=== PATIENT | female | born 1985 | race Caucasian/White ===

== ENCOUNTER 2017-09-10 14:18 | Inpatient (IN) | payer OTHER ==
[2017-09-10 16:58] VITALS: BMI 21.9
--- NOTE | 2017-09-10 19:24 | HP ---
COWS - Scale Resting Pulse: 1= [place] 81-100 Sweatin= Chills/Flushing Restless Observation: 3= Extraneous Movement Pupil Size: 0= Normal to Room Light Bone or Joint Aches: 2= Severe Diffuse Aches Runny Nose/ Eye Tearin= Runny Nose/Eyes GI Upset > 30mins: 2= Nausea/Diarrhea Tremor Observation: 2= Slight Tremor Visible Yawning Observation: 0= None Anxiety or Irritability: 2=Irritable/Anxious Goose Flesh Skin: 0=Smooth Skin COWS Score: 15 Admission [facility] Chief Complaint: withdrawal sx Allergies/Adverse Reactions: Allergies Allergy/AdvReac Type Severity Reaction Status Date / Time No Known Allergies Allergy Verified 09/10/17 17:41 History of Present Illness: 32 years old female with long history of opium nicotine dependence has anxiety and depression is admitted to detox Exam Limitations: No Limitations - Ebola screening Have you traveled outside of the country in the last 21 days: No (N) Have you had contact with anyone from an Ebola affected area: No Have you been sick,other than usual withdrawal symptoms: No Do you have a fever: No - Review of Systems Constitutional: Changes in sleep, Weight Stable EENT: reports: Blurred Vision (eye glasses) Respiratory: reports: Cough, SOB with Exertion Cardiac: reports: No Symptoms Reported GI: reports: Nausea, Poor Fluid Intake, Abdominal cramping : reports: No Symptoms Reported Musculoskeletal: reports: Back Pain, Joint Pain, Muscle Pain, Neck Pain Integumentary: reports: No Symptoms Reported Neuro: reports: Tremors Endocrine: reports: No Symptoms Reported Hematology: reports: No Symptoms Reported Psychiatric: reports: Judgement Intact, Orientated x3, Anxious, Depressed Other Systems: Reviewed and Negative Patient History - Patient Medical History Hx Anemia: No Hx Asthma: No Hx Chronic Obstructive Pulmonary Disease (COPD): No Hx Cancer: No Hx Cardiac Disorders: No Hx Congestive Heart Failure: No Hx Hypertension: No Hx Hypercholesterolemia: No Hx Pacemaker: No HX Cerebrovascular Accident: No Hx Seizures: No Hx Dementia: No Hx Diabetes: No Hx Gastrointestinal Disorders: No Hx Liver Disease: No Hx Genitourinary Disorders: No Hx Sexually Transmitted Disorders: No Hx Renal Disease (ESRD): No Hx Thyroid Disease: No Hx Human Immunodeficiency Virus (HIV): No Hx Hepatitis C: No Hx Depression: Yes Hx Suicide Attempt: No Hx Bipolar Disorder: No Hx Schizophrenia: No - Patient Surgical History Past Surgical History: Yes Hx Neurologic Surgery: No Hx Cataract Extraction: No Hx Cardiac Surgery: No Hx Lung Surgery: No Hx Breast Surgery: No Hx Breast Biopsy: No Hx Abdominal Surgery: No Hx Appendectomy: No Hx Cholecystectomy: No Hx Genitourinary Surgery: No Hx Section: No Hx Orthopedic Surgery: Yes (knee) Hx Hysterectomy: No Anesthesia Reaction: No - PPD History Previous Implant?: Yes Documented Results: Negative w/o proof Implanted On Prior [facility] Admission?: No PPD to be Administered?: Yes - Reproductive History Patient is a Female of Child Bearing Age (11 -55 yrs old): Yes Last Menstrual Period: 09/03/17 Patient : No - Smoking Cessation Smoking history: Current every day smoker Have you smoked in the past 12 months: Yes Aproximately how many cigarettes per day: 15 Cigars Per Day: 0 Hx Chewing Tobacco Use: No Initiated information on smoking cessation: Yes 'Breaking Loose' booklet given: 09/10/17 - Substance & Tx. History Hx Alcohol Use: No Hx Substance Use: Yes Substance Use Type: Cocaine, Marijuana, Opiates Hx Substance Use Treatment: No - Substances Abused Oxycodone Route: Oral Frequency: Daily Amount used: 300 mg Age of first use: 28 Date of Last Use: 09/10/17 Family Disease History - Family Disease History Family History: Unremarkable Admission Physical Exam BHS - Vital Signs Vital Signs: Vital Signs - 24 hr 09/10/17 16:56 Temperature 97.5 F L Pulse Rate 82 Respiratory 18 Rate Blood Pressure 116/70 - Physical General Appearance: Yes: Appropriately Dressed, Mild Distress, Thin, Tremorous, Irritable, Sweating, Anxious HEENTM: Yes: Hearing grossly Normal, Normal ENT Inspection, Normocephalic, Normal Voice Respiratory: Yes: Chest Non-Tender, Lungs Clear, Normal Breath Sounds, No Respiratory Distress, No Accessory Muscle Use Neck: Yes: Supple, Trachea in good position Breast: Yes: Breasts Symetrical Cardiology: Yes: Regular Rhythm, Regular Rate, S1, S2 Abdominal: Yes: Non Tender, Soft, Increased Bowel Sounds Genitourinary: Yes: Within Normal Limits Back: Yes: Normal Inspection Musculoskeletal: Yes: full range of Motion, Gait Steady, Back pain, Muscle Pain Extremities: Yes: Normal Inspection, Normal Range of Motion, Non-Tender, Tremors Neurological: Yes: Fully Oriented, Alert, Motor Strength 5/5, Normal Response, Depressed Affect Integumentary: Yes: Warm Lymphatic: Yes: Within Normal Limits - Diagnostic (1) Opioid dependence with withdrawal Current Visit: Yes Status: Acute (2) Nicotine dependence Current Visit: Yes Status: Acute Qualifiers: Nicotine product type: cigarettes Substance use status: in withdrawal Qualified Code(s): F17.213 - Nicotine dependence, cigarettes, with withdrawal (3) Anxiety and depression Current Visit: Yes Status: Suspected Cleared for Admission [facility] - Detox or Rehab [facility] Level of Care: Medically Managed Detox Regimen/Protocol: Methadone [facility] Breath Alcohol Content Breath Alcohol Content: 0 Urine Pregancy Test - Result Urine Test Results: Negative- NO Line Present Urine Drug Screen - Results Drug Screen Negative: No Urine Drug Screen Results: THC-Marijuana, GUEVARA-Cocaine, OXY-Oxycodone
[2017-09-10] MEDS ORDERED: IBUPROFEN 400 MG TABLET (FP) PO PRN (19:28)
[2017-09-10] MEDS ORDERED: NICOTINE POLACRILEX 4 MG GUM BC PRN (19:28)
[2017-09-10] MEDS ORDERED: ACETAMINOPHEN 325 MG TABLET (FP) PO PRN (19:28)
[2017-09-10] MEDS ORDERED: MENTHOL/PHENOL 1 EACH UD MM PRN (19:28)
[2017-09-10] MEDS ORDERED: P-EPHED 60MG/TRIPROLIDI 2.5MG TABLET PO PRN (19:28)
[2017-09-10] MEDS ORDERED: MAG HYDROX/AL HYDROX/SIMETH 30 ML UNIT-DOSE CUP PO PRN (19:28)
[2017-09-10] MEDS ORDERED: MAGNESIUM HYDROX 2400MG/30ML ORAL SUSPENSION 30 ML CUP PO PRN (19:28)
[2017-09-10] MEDS ORDERED: LOPERAMIDE HCL 2 MG CAPSULE PO PRN (19:28)
[2017-09-10] MEDS ORDERED: METHADONE HCL 10 MG TABLET (FOR DETOX USE ONLY) PO ONE ×2 (19:28→23:00)
[2017-09-10] MEDS ORDERED: guaiFENesin/D-METHORPHAN HB 10 ML UNIT-DOSE CUPS PO PRN (19:28)
[2017-09-10] MEDS ORDERED: MAGNESIUM CITRATE 300 ML BOTTLE PO PRN (19:28)
[2017-09-10] MEDS: diazePAM 5 MG TABLET PO PRN (20:10)
[2017-09-10 20:28] LABS: URINE APPEARANCE SLCLOUDY; URINE BILIRUBIN NEGATIVE (NEGATIVE); URINE BLOOD NEGATIVE (NEGATIVE); URINE COLOR YELLOW; URINE GLUCOSE (UA) NEGATIVE (NEGATIVE); URINE KETONE NEGATIVE (NEGATIVE); URINE NITRITE NEGATIVE (NEGATIVE); URINE PROTEIN NEGATIVE (NEGATIVE); URINE UROBILINOGEN NEGATIVE mg/dL (0.2-1.0)
[2017-09-10] MEDS: BACLOFEN 10 MG TABLET (FP) PO PRN (22:21)
[2017-09-10] MEDS: THIAMINE HCL 100 MG TABLET (FP) PO SCH (22:21)
[2017-09-10 22:54] LABS: URINE LEUK ESTERASE Negative (NEGATIVE)
[2017-09-11] MEDS: diazePAM 5 MG TABLET PO PRN ×3 (06:04→22:22)
[2017-09-11] MEDS ORDERED: METHADONE HCL 10 MG TABLET (FOR DETOX USE ONLY) PO ONE (10:00)
[2017-09-11 10:14] LABS: MCH 31.9 pg (25.7-33.7); MEAN CELL VOLUME 96.7 fl (80-96); MEAN PLT VOLUME 8.1 fl (7.5-11.1); PLATELET COUNT 331 K/MM3 (134-434); RDW 12.5 % (11.6-15.6); WHITE BLOOD COUNT 5.6 K/mm3 (4.0-10.0)
[2017-09-11 10:15] LABS: ALBUMIN 3.6 g/dl (3.4-5.0); ALK PHOS 38 U/L (45-117); ANION GAP 8 (8-16); BILIRUBIN,TOTAL 0.2 mg/dL (0.2-1.0); CALCIUM 8.5 mg/dL (8.5-10.1); CO2 27 mmol/L (21-32); CREATININE 0.8 mg/dL (0.55-1.02); GLUCOSE,RANDOM 92 mg/dL (74-106); SGOT/AST 6 U/L (15-37); SGPT/ALT 15 U/L (12-78); TOT PROT 6.4 g/dl (6.4-8.2)
[2017-09-11] MEDS: PRENATAL VITAMINS W/ FOLIC ACID TABLET (FP) PO SCH (10:33)
[2017-09-11] MEDS: NICOTINE 21 MG/24 HOURS TOPICAL PATCH TD SCH (10:33)
--- NOTE | 2017-09-11 12:12 | PN ---
S COWS - Scale Resting Pulse: 0= [place] 80 or Below Sweatin=Flushed/Facial Moisture Restless Observation: 1= Difficult to Sit Still Pupil Size: 0= Normal to Room Light Bone or Joint Aches: 2= Severe Diffuse Aches Runny Nose/ Eye Tearin= Nasal Congestion GI Upset > 30mins: 1= Stomach Cramp Tremor Observation of Outstretched Hands: 2= Slight Tremor Visible Yawning Observation: 2= >3x During Session Anxiety or Irritability: 2=Irritable/Anxious Goose Flesh Skin: 3=Piloerection COWS Score: 16 [facility] Progress Note (SOAP) Subjective: sweats irritable agitation interrupted sleep Objective: 09/11/17 12:11 Vital Signs Temperature 97.7 F 09/11/17 09:34 Pulse Rate 78 09/11/17 09:34 Respiratory Rate 18 09/11/17 09:34 Blood Pressure 102/71 09/11/17 09:34 O2 Sat by Pulse Oximetry (%) Laboratory Tests 09/10/17 09/11/17 09/11/17 19:40 07:00 07:00 WBC 5.6 RBC 4.04 Hgb 12.9 Hct 39.1 MCV 96.7 H MCH 31.9 MCHC 33.0 RDW 12.5 Plt Count 331 MPV 8.1 Sodium 142 Potassium 4.2 Chloride 107 Carbon Dioxide 27 Anion Gap 8 BUN 14 Creatinine 0.8 Creat Clearance w eGFR > 60 Random Glucose 92 Calcium 8.5 Total Bilirubin 0.2 AST 6 L ALT 15 Alkaline Phosphatase 38 L Total Protein 6.4 Albumin 3.6 Urine Color Yellow Urine Appearance Slcloudy Urine pH 8.0 Ur Specific [place] 1.019 Urine Protein Negative Urine Glucose (UA) Negative Urine Ketones Negative Urine Blood Negative Urine Nitrite Negative Urine Bilirubin Negative Urine Urobilinogen Negative Ur Leukocyte Esterase Negative RPR Titer 09/11/17 07:00 WBC RBC Hgb Hct MCV MCH MCHC RDW Plt Count MPV Sodium Potassium Chloride Carbon Dioxide Anion Gap BUN Creatinine Creat Clearance w eGFR Random Glucose Calcium Total Bilirubin AST ALT Alkaline Phosphatase Total Protein Albumin Urine Color Urine Appearance Urine pH Ur Specific [place] Urine Protein Urine Glucose (UA) Urine Ketones Urine Blood Urine Nitrite Urine Bilirubin Urine Urobilinogen Ur Leukocyte Esterase RPR Titer Nonreactive aaox3 ambulating no acute distress Assessment: 09/11/17 12:12 withdrawal sx Plan: continue detox increase fluids
--- NOTE | 2017-09-11 12:40 | CONSULT ---
[facility] Psychiatric Consult - Data Date of interview: 09/11/17 Admission source: [facility] Identifying data: Pt. is a 32 year old, single, employed, with no children. This is patient's first admission at [facility]. Pt. admitted to for detox from oxycodone dependence. Substance Abuse History: Oxycodone- Reports using oxycodone daily for 4 years. Amount used: 200mg daily on average. Last used 09/10/2017. Cocaine- Used cocaine approximately three times within the past 5 years. Last used last week. Marijuana- Usage: On and off since high school. Last used last week. Medical History: Denies. Psychiatric History: Denies. Pt. denies suicidal and homicidal ideation. Pt. denies a history of suicide attempts. Physical/Sexual Abuse/Trauma History: Denies. Mental Status Exam - Mental Status Exam Alert and Oriented to: Time, Place, Person Cognitive Function: Fair Patient Appearance: Well Groomed Mood: Euthymic Affect: Euthymic Patient Behavior: Appropriate, Cooperative Speech Pattern: Clear Voice Loudness: Normal Thought Process: Intact Thought Disorder: Present Hallucinations: Denies Suicidal Ideation: Denies Homicidal Ideation: Denies Insight/Judgement: Fair Sleep: Well Appetite: Fair Muscle strength/Tone: Normal Gait/Station: Normal Psychiatric Findings - Problem List ([place] 1, 2,3) (1) Substance induced mood disorder Current Visit: Yes Status: Acute (2) Nicotine dependence Current Visit: Yes Status: Acute Qualifiers: Nicotine product type: cigarettes Substance use status: in withdrawal Qualified Code(s): F17.213 - Nicotine dependence, cigarettes, with withdrawal (3) Opioid dependence with withdrawal Current Visit: Yes Status: Acute - Initial Treatment Plan Initial Treatment Plan: Psycoeducation provided. Chart reviewed. No psychotrophic medications needed at this time. Will continue to monitor patient.
[2017-09-11] MEDS: THIAMINE HCL 100 MG TABLET (FP) PO SCH (22:22)
[2017-09-11] MEDS: BACLOFEN 10 MG TABLET (FP) PO PRN (22:22)
[2017-09-12] MEDS: diazePAM 5 MG TABLET PO PRN ×4 (05:37→22:29)
[2017-09-12] MEDS: BACLOFEN 10 MG TABLET (FP) PO PRN ×2 (05:37→22:28)
--- NOTE | 2017-09-12 08:00 | EKG ---
Test Reason : Blood Pressure : / mmHG Vent. Rate : 064 BPM Atrial Rate : 064 BPM P-R Int : 128 ms QRS Dur : 076 ms QT Int : 430 ms P-R-T Axes : 047 084 065 degrees QTc Int : 443 ms NORMAL SINUS RHYTHM NORMAL ECG NO PREVIOUS ECGS AVAILABLE Confirmed by MD Sandoval Daniel ([id number]) on 09/11/2017 3:03:48 PM Also confirmed by MD Sandoval Daniel ([id number]), continuity editor JONNY SELF ([id number]) on 09/12/2017 7:59:45 AM Referred By: Confirmed By:Jonny Sandoval MD
[2017-09-12] MEDS ORDERED: METHADONE HCL 5 MG TABLET (FOR DETOX USE ONLY) PO ONE (10:00)
[2017-09-12] MEDS: PRENATAL VITAMINS W/ FOLIC ACID TABLET (FP) PO SCH (10:34)
[2017-09-12] MEDS: NICOTINE 21 MG/24 HOURS TOPICAL PATCH TD SCH (10:37)
--- NOTE | 2017-09-12 11:11 | PN ---
S COWS - Scale Resting Pulse: 0= [place] 80 or Below Sweatin=Flushed/Facial Moisture Restless Observation: 1= Difficult to Sit Still Pupil Size: 0= Normal to Room Light Bone or Joint Aches: 2= Severe Diffuse Aches Runny Nose/ Eye Tearin= Nasal Congestion GI Upset > 30mins: 0= None Tremor Observation of Outstretched Hands: 2= Slight Tremor Visible Yawning Observation: 1= 1-2x During Session Anxiety or Irritability: 2=Irritable/Anxious Goose Flesh Skin: 0=Smooth Skin COWS Score: 11 [facility] Progress Note (SOAP) Subjective: agitation sweats interrupted sleep irritable Objective: 09/12/17 11:10 Vital Signs Temperature 97.7 F 09/12/17 10:17 Pulse Rate 76 09/12/17 10:17 Respiratory Rate 18 09/12/17 10:17 Blood Pressure 109/60 09/12/17 10:17 O2 Sat by Pulse Oximetry (%) Laboratory Tests 09/10/17 09/11/17 09/11/17 19:40 07:00 07:00 WBC 5.6 RBC 4.04 Hgb 12.9 Hct 39.1 MCV 96.7 H MCH 31.9 MCHC 33.0 RDW 12.5 Plt Count 331 MPV 8.1 Sodium 142 Potassium 4.2 Chloride 107 Carbon Dioxide 27 Anion Gap 8 BUN 14 Creatinine 0.8 Creat Clearance w eGFR > 60 Random Glucose 92 Calcium 8.5 Total Bilirubin 0.2 AST 6 L ALT 15 Alkaline Phosphatase 38 L Total Protein 6.4 Albumin 3.6 Urine Color Yellow Urine Appearance Slcloudy Urine pH 8.0 Ur Specific [place] 1.019 Urine Protein Negative Urine Glucose (UA) Negative Urine Ketones Negative Urine Blood Negative Urine Nitrite Negative Urine Bilirubin Negative Urine Urobilinogen Negative Ur Leukocyte Esterase Negative RPR Titer 09/11/17 07:00 WBC RBC Hgb Hct MCV MCH MCHC RDW Plt Count MPV Sodium Potassium Chloride Carbon Dioxide Anion Gap BUN Creatinine Creat Clearance w eGFR Random Glucose Calcium Total Bilirubin AST ALT Alkaline Phosphatase Total Protein Albumin Urine Color Urine Appearance Urine pH Ur Specific [place] Urine Protein Urine Glucose (UA) Urine Ketones Urine Blood Urine Nitrite Urine Bilirubin Urine Urobilinogen Ur Leukocyte Esterase RPR Titer Nonreactive aaox3 ambulating no acute distress Assessment: 09/12/17 11:11 withdrawal sx Plan: continue detox increase fluids
[2017-09-12] MEDS: THIAMINE HCL 100 MG TABLET (FP) PO SCH (22:28)
[2017-09-13] MEDS: diazePAM 5 MG TABLET PO PRN (04:29)
[2017-09-13 06:39] VITALS: BP 100/55; PULSE 63; TEMP 97.7
[2017-09-13] MEDS: PRENATAL VITAMINS W/ FOLIC ACID TABLET (FP) PO SCH (09:02)
[2017-09-13] MEDS: NICOTINE 21 MG/24 HOURS TOPICAL PATCH TD SCH (09:04)
--- NOTE | 2017-09-13 09:35 | PN ---
S Progress Note Note: pt did not want to stay to complete detox she states she needs to go to work doesnt want to lose her job. pt signed out AMA.
--- NOTE | 2017-09-13 09:36 | DS ---
[facility] Detox Discharge Summary Admission Date: 09/10/17 - History Present History: Opioid Dependence - Physical Exam Results Vital Signs: Vital Signs Temperature 97.7 F 09/13/17 06:00 Pulse Rate 63 09/13/17 06:00 Respiratory Rate 18 09/13/17 06:00 Blood Pressure 100/55 09/13/17 06:00 O2 Sat by Pulse Oximetry (%) - Treatment Hospital Course: Responded well, Discharged Condition Good - Medication Discharge Medications: Ambulatory Orders NK [No Known Home Medication] 09/10/17 - Diagnosis (1) Nicotine dependence Current Visit: Yes Status: Chronic Qualifiers: Nicotine product type: cigarettes Substance use status: uncomplicated Qualified Code(s): F17.210 - Nicotine dependence, cigarettes, uncomplicated (2) Opioid dependence with withdrawal Current Visit: Yes Status: Chronic (3) Substance induced mood disorder Current Visit: Yes Status: Acute (4) Anxiety and depression Current Visit: Yes Status: Suspected - AMA Did Patient Leave Against Medical Advice: Yes
[2017-09-13] MEDS ORDERED: METHADONE HCL 5 MG TABLET (FOR DETOX USE ONLY) PO ONE (10:00)
[2017-09-14] MEDS ORDERED: METHADONE HCL 10 MG TABLET (FOR DETOX USE ONLY) PO ONE (10:00)
[2017-09-15] MEDS ORDERED: METHADONE HCL 5 MG TABLET (FOR DETOX USE ONLY) PO ONE (06:00)
== END 2017-09-13 09:20 | disposition left against medical advice (07) | DRG 894 ==
LOC: YASAS 14:18 → Y6N 18:14
PROVIDERS: ADMIT Internal Medicine; ATTEND Internal Medicine
PROC: HZ2ZZZZ Detoxification Services for Substance Abuse Treatment (ICD-10-PCS; principal; 2017-09-10)
DX: F11.23 Opioid dependence with withdrawal (principal); F17.210 Nicotine dependence, cigarettes, uncomplicated; F19.24 Other psychoactive substance dependence with psychoactive substance-induced mood disorder; F41.8 Other specified anxiety disorders
CPT/HCPCS: 36415; 80053; 81003; 85027; 86593; 93005; 93010; J0475

== ENCOUNTER 2017-10-11 21:55 | Inpatient (IN) | payer OTHER ==
--- NOTE | 2017-10-11 22:13 | HP ---
COWS - Scale Resting Pulse: 1= [place] 81-100 Sweatin= Chills/Flushing Restless Observation: 3= Extraneous Movement Pupil Size: 0= Normal to Room Light Bone or Joint Aches: 2= Severe Diffuse Aches Runny Nose/ Eye Tearin= Runny Nose/Eyes GI Upset > 30mins: 2= Nausea/Diarrhea Tremor Observation: 2= Slight Tremor Visible Yawning Observation: 0= None Anxiety or Irritability: 2=Irritable/Anxious Goose Flesh Skin: 0=Smooth Skin COWS Score: [address] [facility] Chief Complaint: withdrawal sx Allergies/Adverse Reactions: Allergies Allergy/AdvReac Type Severity Reaction Status Date / Time No Known Allergies Allergy Verified 09/10/17 17:41 History of Present Illness: 32 years old female with long history of heroin nicotine dependence has right knee surgery at age 11 is admitted to detox Exam Limitations: No Limitations - Ebola screening Have you traveled outside of the country in the last 21 days: No Have you had contact with anyone from an Ebola affected area: No Have you been sick,other than usual withdrawal symptoms: No Do you have a fever: No - Review of Systems Constitutional: Chills, Loss of Appetite, Unintentional Wgt. Loss, Unexplained wgt Loss EENT: reports: No Symptoms Reported Respiratory: reports: No Symptoms reported Cardiac: reports: No Symptoms Reported GI: reports: Diarrhea, Nausea, Poor Appetite, Poor Fluid Intake, Abdominal cramping : reports: No Symptoms Reported Musculoskeletal: reports: Back Pain, Joint Pain, Muscle Pain, Neck Pain Integumentary: reports: No Symptoms Reported Neuro: reports: Tremors Endocrine: reports: No Symptoms Reported Hematology: reports: No Symptoms Reported Psychiatric: reports: Judgement Intact, Mood/Affect Appropiate, Orientated x3 Other Systems: Reviewed and Negative Patient History - Patient Medical History Hx Anemia: No Hx Asthma: No Hx Chronic Obstructive Pulmonary Disease (COPD): No Hx Cancer: No Hx Cardiac Disorders: No Hx Congestive Heart Failure: No Hx Hypertension: No Hx Hypercholesterolemia: No Hx Pacemaker: No HX Cerebrovascular Accident: No Hx Seizures: No Hx Dementia: No Hx Diabetes: No Hx Gastrointestinal Disorders: No Hx Liver Disease: No Hx Genitourinary Disorders: No Hx Sexually Transmitted Disorders: No Hx Renal Disease (ESRD): No Hx Thyroid Disease: No Hx Human Immunodeficiency Virus (HIV): No Hx Hepatitis C: No Hx Depression: No Hx Suicide Attempt: No Hx Bipolar Disorder: No Hx Schizophrenia: No - Patient Surgical History Past Surgical History: Yes Hx Neurologic Surgery: No Hx Cataract Extraction: No Hx Cardiac Surgery: No Hx Lung Surgery: No Hx Breast Surgery: No Hx Breast Biopsy: No Hx Abdominal Surgery: No Hx Appendectomy: No Hx Cholecystectomy: No Hx Genitourinary Surgery: No Hx Section: No Hx Orthopedic Surgery: Yes (knee) Hx Hysterectomy: No Anesthesia Reaction: No - PPD History Previous Implant?: Yes Documented Results: Negative w/proof Implanted On Prior R Admission?: Yes Date: 09/12/17 - Reproductive History Last Menstrual Period: 09/26/17 Patient : No - Smoking Cessation Smoking history: Current every day smoker Have you smoked in the past 12 months: Yes Aproximately how many cigarettes per day: 15 Cigars Per Day: 0 Hx Chewing Tobacco Use: No Initiated information on smoking cessation: Yes 'Breaking Loose' booklet given: 10/11/17 - Substance & Tx. History Hx Alcohol Use: No Hx Substance Use: Yes Substance Use Type: Heroin Hx Substance Use Treatment: Yes (09/2017) - Substances Abused oxy Route: Oral Frequency: Daily Amount used: 300-450 mg Age of first use: 28 Date of Last Use: 10/11/17 Marijuana/Hashish Route: Smoking Frequency: Daily Amount used: blund Age of first use: 13 Date of Last Use: 10/11/17 Cocaine Route: Smoking Frequency: Daily Amount used: 40$ Age of first use: 18 Date of Last Use: 10/11/17 Family Disease History - Family Disease History Family History: Unremarkable Admission Physical Exam [facility] Physical General Appearance: Yes: Appropriately Dressed, Mild Distress, Thin, Tremorous, Irritable, Sweating, Anxious HEENTM: Yes: Hearing grossly Normal, Normal ENT Inspection, Normocephalic, Normal Voice Respiratory: Yes: Chest Non-Tender, Lungs Clear, Normal Breath Sounds, No Respiratory Distress, No Accessory Muscle Use Neck: Yes: Supple, Trachea in good position Breast: Yes: Breasts Symetrical Cardiology: Yes: Regular Rhythm, Regular Rate, S1, S2 Abdominal: Yes: Non Tender, Soft, Increased Bowel Sounds Genitourinary: Yes: Within Normal Limits Back: Yes: Normal Inspection Musculoskeletal: Yes: full range of Motion, Gait Steady, Back pain, Muscle Pain Extremities: Yes: Normal Inspection, Normal Range of Motion, Non-Tender, Tremors Neurological: Yes: Fully Oriented, Alert, Motor Strength 5/5, Normal Mood/Affect , Normal Response Integumentary: Yes: Warm Lymphatic: Yes: Within Normal Limits - Diagnostic (1) Nicotine dependence Current Visit: Yes Status: Acute Qualifiers: Nicotine product type: cigarettes Substance use status: in withdrawal Qualified Code(s): F17.213 - Nicotine dependence, cigarettes, with withdrawal (2) Opioid dependence with withdrawal Current Visit: Yes Status: Acute Cleared for Admission [facility] - Detox or Rehab [facility] Level of Care: Medically Managed Detox Regimen/Protocol: Methadone [facility] Breath Alcohol Content Breath Alcohol Content: 0 Vital Signs - Vital Signs Vital Signs Refused: No Temperature: 98.5 F Temperature Source: Tympanic (98.5) Pulse Rate: 89 Respiratory Rate: 20 Blood Pressure: 131/89 BP Location: Left Arm Blood Pressure Position: Sitting - Height Height: 5 ft 6 in - Weight Weight: 135 lb Weight Measurement Method: Standing Scale Body Mass Index (BMI): 21.7 - Bowel Function Bowel Movement: No Urine Pregancy Test - Test Device Lot Number: [id number] Expiration Date: 02/04/19 - Control Horizontal Line in Upper Control Window?: Yes - Result Urine Test Results: Negative- NO Line Present Urine Drug Screen - Test Device Lot Number: [id number] Expiration Date: 07/07/19 - Control Is Test Valid: Yes - Results Drug Screen Negative: No Urine Drug Screen Results: THC-Marijuana, GUEVARA-Cocaine, AMP-Amphetamines, MET- Methamphetamine, MDMA-Ecstasy, BZO-Benzodiazepines, OXY-Oxycodone
[2017-10-11 22:16] VITALS: BMI 21.7
[2017-10-11] MEDS ORDERED: LOPERAMIDE HCL 2 MG CAPSULE PO PRN (22:16)
[2017-10-11] MEDS ORDERED: MAGNESIUM HYDROX 2400MG/30ML ORAL SUSPENSION 30 ML CUP PO PRN (22:16)
[2017-10-11] MEDS ORDERED: METHADONE HCL 10 MG TABLET (FOR DETOX USE ONLY) PO ONE ×2 (22:16→23:00)
[2017-10-11] MEDS ORDERED: MAG HYDROX/AL HYDROX/SIMETH 30 ML UNIT-DOSE CUP PO PRN (22:16)
[2017-10-11] MEDS ORDERED: P-EPHED 60MG/TRIPROLIDI 2.5MG TABLET PO PRN (22:16)
[2017-10-11] MEDS ORDERED: MENTHOL/PHENOL 1 EACH UD MM PRN (22:16)
[2017-10-11] MEDS ORDERED: ACETAMINOPHEN 325 MG TABLET (FP) PO PRN (22:16)
[2017-10-11] MEDS ORDERED: MAGNESIUM CITRATE 300 ML BOTTLE PO PRN (22:16)
[2017-10-11] MEDS ORDERED: IBUPROFEN 400 MG TABLET (FP) PO PRN (22:16)
[2017-10-11] MEDS ORDERED: guaiFENesin/D-METHORPHAN HB 10 ML UNIT-DOSE CUPS PO PRN (22:16)
[2017-10-11] MEDS: METHOCARBAMOL 500 MG TABLET PO PRN (23:19)
[2017-10-11] MEDS: diazePAM 5 MG TABLET PO PRN (23:20)
[2017-10-12] MEDS: diazePAM 5 MG TABLET PO PRN ×3 (07:12→22:14)
[2017-10-12] MEDS ORDERED: METHADONE HCL 10 MG TABLET (FOR DETOX USE ONLY) PO ONE (10:00)
[2017-10-12 10:07] LABS: HEMATOCRIT 40.9 % (32.4-45.2); HEMOGLOBIN 13.5 GM/dL (10.7-15.3); MCH 31.9 pg (25.7-33.7); MCHC 32.9 g/dl (32.0-36.0); MEAN CELL VOLUME 96.8 fl (80-96); MEAN PLT VOLUME 8.2 fl (7.5-11.1); PLATELET COUNT 318 K/MM3 (134-434); RBC 4.22 M/mm3 (3.60-5.2); RDW 12.8 % (11.6-15.6); WHITE BLOOD COUNT 6.2 K/mm3 (4.0-10.0)
[2017-10-12] MEDS: NICOTINE 14 MG/24 HOURS TOPICAL PATCH TD SCH (10:18)
[2017-10-12] MEDS: PRENATAL VITAMINS W/ FOLIC ACID TABLET (FP) PO SCH (10:18)
--- NOTE | 2017-10-12 10:32 | EKG ---
Test Reason : Blood Pressure : / mmHG Vent. Rate : 075 BPM Atrial Rate : 075 BPM P-R Int : 150 ms QRS Dur : 082 ms QT Int : 402 ms P-R-T Axes : 043 086 059 degrees QTc Int : 448 ms NORMAL SINUS RHYTHM NORMAL ECG WHEN COMPARED WITH ECG OF 10-SEP-2017 20:19, NO SIGNIFICANT CHANGE WAS FOUND Confirmed by ANIA WILKERSON MD ([id number]) on 10/12/2017 10:31:53 AM Referred By: Elton Pittman Confirmed By:ANIA WILKERSON MD
--- NOTE | 2017-10-12 10:38 | PN ---
[facility]HS COWS - Scale Resting Pulse: 0= [place] 80 or Below Sweatin=Flushed/Facial Moisture Restless Observation: 1= Difficult to Sit Still Pupil Size: 0= Normal to Room Light Bone or Joint Aches: 2= Severe Diffuse Aches Runny Nose/ Eye Tearin= Runny Nose/Eyes GI Upset > 30mins: 0= None Tremor Observation of Outstretched Hands: 2= Slight Tremor Visible Yawning Observation: 2= >3x During Session Anxiety or Irritability: 2=Irritable/Anxious Goose Flesh Skin: 3=Piloerection COWS Score: 16 [facility] Progress Note (SOAP) Subjective: irritable agitation anxiety sweats body aches shakes Objective: 10/12/17 10:37 Vital Signs Temperature 96.7 F L 10/12/17 09:41 Pulse Rate 78 10/12/17 09:41 Respiratory Rate 18 10/12/17 09:41 Blood Pressure 103/77 10/12/17 09:41 O2 Sat by Pulse Oximetry (%) Laboratory Tests 10/12/17 06:30 WBC 6.2 RBC 4.22 Hgb 13.5 Hct 40.9 MCV 96.8 H MCH 31.9 MCHC 32.9 RDW 12.8 Plt Count 318 MPV 8.2 labs pending aaox3 ambulating no acute distress Assessment: 10/12/17 10:37 withdrawal sx Plan: continue detox increase fluids labs pending
[2017-10-12 10:56] LABS: ALBUMIN 3.9 g/dl (3.4-5.0); ALK PHOS 45 U/L (45-117); ANION GAP 4 (8-16); BILIRUBIN,TOTAL 0.5 mg/dL (0.2-1.0); BLOOD UREA NITROGEN 12 mg/dL (7-18); CALCIUM 8.5 mg/dL (8.5-10.1); CHLORIDE 105 mmol/L (98-107); CO2 30 mmol/L (21-32); CREATININE 0.9 mg/dL (0.55-1.02); GLUCOSE,RANDOM 111 mg/dL (74-106); POTASSIUM 4.2 mmol/L (3.5-5.1); SGOT/AST 13 U/L (15-37); SGPT/ALT 21 U/L (12-78); SODIUM 139 mmol/L (136-145)
[2017-10-12] MEDS: METHOCARBAMOL 500 MG TABLET PO PRN (22:14)
[2017-10-12] MEDS: THIAMINE HCL 100 MG TABLET (FP) PO SCH (22:14)
[2017-10-13] MEDS: diazePAM 5 MG TABLET PO PRN ×4 (05:58→22:41)
[2017-10-13] MEDS ORDERED: METHADONE HCL 5 MG TABLET (FOR DETOX USE ONLY) PO ONE (10:00)
[2017-10-13] MEDS: NICOTINE 14 MG/24 HOURS TOPICAL PATCH TD SCH (10:42)
[2017-10-13] MEDS: METHOCARBAMOL 500 MG TABLET PO PRN ×2 (10:42→22:41)
[2017-10-13] MEDS: PRENATAL VITAMINS W/ FOLIC ACID TABLET (FP) PO SCH (10:42)
--- NOTE | 2017-10-13 12:32 | PN ---
BHS COWS - Scale Resting Pulse: 1= [place] 81-100 Sweatin= Chills/Flushing Restless Observation: 3= Extraneous Movement Pupil Size: 1= Pupils >than Normal Bone or Joint Aches: 2= Severe Diffuse Aches Runny Nose/ Eye Tearin= Runny Nose/Eyes GI Upset > 30mins: 3= Vomiting/Diarrhea Tremor Observation of Outstretched Hands: 2= Slight Tremor Visible Yawning Observation: 1= 1-2x During Session Anxiety or Irritability: 2=Irritable/Anxious Goose Flesh Skin: 0=Smooth Skin COWS Score: 18 [facility] Progress Note (SOAP) Subjective: ALERT,IRRITABLE,ANXIOUS,INTERRUPTED SLEEP,TREMOR,PAIN IN THE BODY AND BACK Objective: 10/13/17 12:31 Vital Signs Temperature 97.5 F L 10/13/17 10:20 Pulse Rate 86 10/13/17 10:20 Respiratory Rate 16 10/13/17 10:20 Blood Pressure 97/74 10/13/17 10:20 O2 Sat by Pulse Oximetry (%) Laboratory Last Values WBC 6.2 K/mm3 (4.0-10.0) 10/12/17 06:30 RBC 4.22 M/mm3 (3.60-5.2) 10/12/17 06:30 Hgb 13.5 GM/dL (10.7-15.3) 10/12/17 06:30 Hct 40.9 % (32.4-45.2) 10/12/17 06:30 MCV 96.8 fl (80-96) H 10/12/17 06:30 MCH 31.9 pg (25.7-33.7) 10/12/17 06:30 MCHC 32.9 g/dl (32.0-36.0) 10/12/17 06:30 RDW 12.8 % (11.6-15.6) 10/12/17 06:30 Plt Count 318 K/MM3 (134-434) 10/12/17 06:30 MPV 8.2 fl (7.5-11.1) 10/12/17 06:30 Sodium 139 mmol/L (136-145) 10/12/17 06:30 Potassium 4.2 mmol/L (3.5-5.1) 01/05/18 06:30 Chloride 105 mmol/L (98-107) 10/12/17 06:30 Carbon Dioxide 30 mmol/L (21-32) 10/12/17 06:30 Anion Gap 4 (8-16) L 10/12/17 06:30 BUN 12 mg/dL (7-18) 10/12/17 06:30 Creatinine 0.9 mg/dL (0.55-1.02) 10/12/17 06:30 Creat Clearance w eGFR > 60 (>60) 10/12/17 06:30 Random Glucose 111 mg/dL (74-106) H D 10/12/17 06:30 Calcium 8.5 mg/dL (8.5-10.1) 10/12/17 06:30 Total Bilirubin 0.5 mg/dL (0.2-1.0) D 10/12/17 06:30 AST 13 U/L (15-37) L D 10/12/17 06:30 ALT 21 U/L (12-78) D 10/12/17 06:30 Alkaline Phosphatase 45 U/L (45-117) 10/12/17 06:30 Total Protein 7.0 g/dl (6.4-8.2) 10/12/17 06:30 Albumin 3.9 g/dl (3.4-5.0) 10/12/17 06:30 RPR Titer Nonreactive (NONREACTIVE) 10/12/17 06:30 Assessment: 10/13/17 12:32 WITHDRAWAL SYMPTOM Plan: CONTINUE DETOX
[2017-10-13 20:00] LABS: URINE APPEARANCE CLEAR; URINE BILIRUBIN NEGATIVE (NEGATIVE); URINE BLOOD NEGATIVE (NEGATIVE); URINE COLOR YELLOW; URINE GLUCOSE (UA) NEGATIVE (NEGATIVE); URINE KETONE NEGATIVE (NEGATIVE); URINE LEUK ESTERASE NEGATIVE (NEGATIVE); URINE NITRITE NEGATIVE (NEGATIVE); URINE UROBILINOGEN NEGATIVE mg/dL (0.2-1.0)
[2017-10-13 20:08] LABS: URINE PROTEIN 1+ (NEGATIVE)
[2017-10-13 20:09] LABS: EPI CELLS RARE /HPF (FEW); URINE MUCUS RARE
[2017-10-13] MEDS: THIAMINE HCL 100 MG TABLET (FP) PO SCH (22:41)
[2017-10-14] MEDS: diazePAM 5 MG TABLET PO PRN ×4 (05:50→19:52)
[2017-10-14] MEDS ORDERED: METHADONE HCL 5 MG TABLET (FOR DETOX USE ONLY) PO ONE (10:00)
[2017-10-14] MEDS: NICOTINE 14 MG/24 HOURS TOPICAL PATCH TD SCH (10:26)
[2017-10-14] MEDS: METHOCARBAMOL 500 MG TABLET PO PRN ×2 (10:26→22:35)
[2017-10-14] MEDS: PRENATAL VITAMINS W/ FOLIC ACID TABLET (FP) PO SCH (10:26)
--- NOTE | 2017-10-14 14:55 | PN ---
[facility] Progress Note (SOAP) Subjective: GI DISTRESS SWEATING AGITATION RESTLESSNESS Objective: 10/14/17 14:52 Vital Signs Temperature 97.7 F 10/14/17 10:00 Pulse Rate 69 10/14/17 10:00 Respiratory Rate 20 10/14/17 10:00 Blood Pressure 108/60 10/14/17 10:00 O2 Sat by Pulse Oximetry (%) Laboratory Last Values WBC 6.2 K/mm3 (4.0-10.0) 10/12/17 06:30 RBC 4.22 M/mm3 (3.60-5.2) 10/12/17 06:30 Hgb 13.5 GM/dL (10.7-15.3) 10/12/17 06:30 Hct 40.9 % (32.4-45.2) 10/12/17 06:30 MCV 96.8 fl (80-96) H 10/12/17 06:30 MCH 31.9 pg (25.7-33.7) 10/12/17 06:30 MCHC 32.9 g/dl (32.0-36.0) 10/12/17 06:30 RDW 12.8 % (11.6-15.6) 10/12/17 06:30 Plt Count 318 K/MM3 (134-434) 10/12/17 06:30 MPV 8.2 fl (7.5-11.1) 10/12/17 06:30 Sodium 139 mmol/L (136-145) 10/12/17 06:30 Potassium 4.2 mmol/L (3.5-5.1) 10/12/17 06:30 Chloride 105 mmol/L (98-107) 10/12/17 06:30 Carbon Dioxide 30 mmol/L (21-32) 10/12/17 06:30 Anion Gap 4 (8-16) L 10/12/17 06:30 BUN 12 mg/dL (7-18) 10/12/17 06:30 Creatinine 0.9 mg/dL (0.55-1.02) 10/12/17 06:30 Creat Clearance w eGFR > 60 (>60) 10/12/17 06:30 Random Glucose 111 mg/dL (74-106) H D 10/12/17 06:30 Calcium 8.5 mg/dL (8.5-10.1) 10/12/17 06:30 Total Bilirubin 0.5 mg/dL (0.2-1.0) D 10/12/17 06:30 AST 13 U/L (15-37) L D 10/12/17 06:30 ALT 21 U/L (12-78) D 10/12/17 06:30 Alkaline Phosphatase 45 U/L (45-117) 10/12/17 06:30 Total Protein 7.0 g/dl (6.4-8.2) 10/12/17 06:30 Albumin 3.9 g/dl (3.4-5.0) 10/12/17 06:30 Urine Color Yellow 10/13/17 12:40 Urine Appearance Clear 10/13/17 12:40 Urine pH 7.0 (5.0-8.0) 10/13/17 12:40 Ur Specific [place] 1.024 (1.001-1.035) 10/13/17 12:40 Urine Protein 1+ (NEGATIVE) H 10/13/17 12:40 Urine Glucose (UA) Negative (NEGATIVE) 10/13/17 12:40 Urine Ketones Negative (NEGATIVE) 10/13/17 12:40 Urine Blood Negative (NEGATIVE) 10/13/17 12:40 Urine Nitrite Negative (NEGATIVE) 10/13/17 12:40 Urine Bilirubin Negative (NEGATIVE) 10/13/17 12:40 Urine Urobilinogen Negative mg/dL (0.2-1.0) 10/13/17 12:40 Ur Leukocyte Esterase Negative (NEGATIVE) 10/13/17 12:40 Urine WBC (Auto) 4 /hpf (3-5) 10/13/17 12:40 Urine RBC (Auto) <1 /hpf (0-3) 10/13/17 12:40 Ur Epithelial Cells Rare /HPF (FEW) 10/13/17 12:40 Urine Mucus Rare 10/13/17 12:40 RPR Titer Nonreactive (NONREACTIVE) 10/12/17 06:30 LAB NOTED Assessment: 10/14/17 14:54 WITHDRAWAL SX Plan: CONTINUE DETOX
[2017-10-14] MEDS: NICOTINE POLACRILEX 2 MG GUM BC PRN ×2 (19:52→23:12)
[2017-10-14] MEDS: THIAMINE HCL 100 MG TABLET (FP) PO SCH (22:35)
[2017-10-15] MEDS ORDERED: hydrOXYzine PAMOATE 50 MG CAPSULE (FP) PO ONE (00:24)
[2017-10-15 06:15] VITALS: BP 95/55; PULSE 60; TEMP 96.8
--- NOTE | 2017-10-15 07:55 | CONSULT ---
[facility] Psychiatric Consult - Data Date of interview: 10/15/17 Admission source: [facility] Identifying data: This is 32 years old female with no psychiatric hgospitalization history, intoxicated with: Opioids, Nicotine, Amphetamins, Merthadone, Extazy, Benzo Substance Abuse History: - Smoking Cessation. Smoking history: Current every day smoker. Have you smoked in the past 12 months: Yes. Aproximately how many cigarettes per day: 15. Cigars Per Day: 0. Hx Chewing Tobacco Use: No. Initiated information on smoking cessation: Yes. 'Breaking Loose' booklet given : 10/11/17. - Substance & Tx. History. Hx Alcohol Use: No. Hx Substance Use: Yes. Substance Use Type: Heroin. Hx Substance Use Treatment: Yes (09/2017). - Substances Abused. oxy. Route: Oral. Frequency: Daily. Amount used: 300 -450 mg. Age of first use: 28. Date of Last Use: 10/11/17. Marijuana/ Hashish. Route: Smoking. Frequency: Daily. Amount used: blund. Age of first use: 13. Date of Last Use: 10/11/17. Cocaine. Route: Smoking. Frequency: Daily. Amount used: 40$. Age of first use: 18. Date of Last Use: 10/11/17 Medical History: Denies Psychiatric History: Denies Physical/Sexual Abuse/Trauma History: Denies Additional Comment: Observation. Detox [facility] Protocol Mental Status Exam - Mental Status Exam Alert and Oriented to: Person Cognitive Function: Fair Patient Appearance: Unkempt Mood: Sad Affect: Normal Range Patient Behavior: Cooperative Speech Pattern: Appropriate Voice Loudness: Mildly Soft/Quiet Thought Process: Goal Oriented Thought Disorder: Being Controlled Hallucinations: Denies Suicidal Ideation: Denies Homicidal Ideation: Denies Sleep: Difficulty falling asleep Appetite: Weight loss Muscle strength/Tone: Normal Gait/Station: Normal Additional Comments: Observation. Detox [facility] Protocol Psychiatric Findings - Problem List ([place] 1, 2,3) (1) Amphetamine abuse Current Visit: Yes Status: Acute (2) Nicotine dependence Current Visit: Yes Status: Chronic Qualifiers: Nicotine product type: cigarettes Substance use status: uncomplicated Qualified Code(s): F17.210 - Nicotine dependence, cigarettes, uncomplicated (3) Opioid dependence with withdrawal Current Visit: Yes Status: Chronic (4) Substance induced mood disorder Current Visit: No Status: Acute (5) Anxiety and depression Current Visit: No Status: Suspected (6) Drug-induced mood disorder Current Visit: Yes Status: Suspected (7) Benzodiazepine abuse Current Visit: Yes Status: Acute - Initial Treatment Plan Initial Treatment Plan: Observation. Detox [facility] Protocol
--- NOTE | 2017-10-15 08:45 | PN ---
[facility] Progress Note Note: pt states she feels better wants to leave today she has a court date today. pt agreed for her last dose of methadone today and be d/c.
--- NOTE | 2017-10-15 09:21 | DS ---
[facility] Detox Discharge Summary Admission Date: 10/11/17 Discharge Date: 10/15/17 - History Present History: Opioid Dependence - Physical Exam Results Vital Signs: Vital Signs Temperature 96.8 F L 10/15/17 06:14 Pulse Rate 60 10/15/17 06:14 Respiratory Rate 16 10/15/17 06:14 Blood Pressure 95/55 10/15/17 06:14 O2 Sat by Pulse Oximetry (%) - Treatment Hospital Course: Detox Protocol Followed, Detoxed Safely, Responded well, Discharged Condition Good, Rehab Referral Accepted - Medication Discharge Medications: Ambulatory Orders NK [No Known Home Medication] 09/10/17 - Diagnosis (1) Nicotine dependence Current Visit: Yes Status: Chronic Qualifiers: Nicotine product type: cigarettes Substance use status: uncomplicated Qualified Code(s): F17.210 - Nicotine dependence, cigarettes, uncomplicated (2) Opioid dependence with withdrawal Current Visit: Yes Status: Chronic (3) Substance induced mood disorder Current Visit: No Status: Acute (4) Anxiety and depression Current Visit: No Status: Suspected - AMA Did Patient Leave Against Medical Advice: No
[2017-10-15] MEDS: PRENATAL VITAMINS W/ FOLIC ACID TABLET (FP) PO SCH (09:28)
[2017-10-15] MEDS ORDERED: METHADONE HCL 10 MG TABLET (FOR DETOX USE ONLY) PO ONE ×2 (09:30→10:00)
[2017-10-15] MEDS: NICOTINE 14 MG/24 HOURS TOPICAL PATCH TD SCH (09:31)
[2017-10-16] MEDS ORDERED: METHADONE HCL 5 MG TABLET (FOR DETOX USE ONLY) PO ONE (06:00)
== END 2017-10-15 09:35 | disposition home or self-care (01) | DRG 897 ==
LOC: YASAS 21:55 → Y6N 22:19
PROVIDERS: ADMIT Internal Medicine; ATTEND Internal Medicine
PROC: HZ2ZZZZ Detoxification Services for Substance Abuse Treatment (ICD-10-PCS; principal; 2017-10-11)
DX: F11.23 Opioid dependence with withdrawal (principal); F13.10 Sedative, hypnotic or anxiolytic abuse, uncomplicated; F15.10 Other stimulant abuse, uncomplicated; F17.210 Nicotine dependence, cigarettes, uncomplicated; F19.24 Other psychoactive substance dependence with psychoactive substance-induced mood disorder; F41.8 Other specified anxiety disorders
CPT/HCPCS: 36415; 80053; 81003; 81015; 85027; 86593; 93005; 93010